=== PATIENT | male | born 1990 | race Caucasian/White ===

== ENCOUNTER 2021-12-21 21:27 | Emergency (ER) | payer OTHER, SELFPAY ==
[2021-12-21 22:46] VITALS: BP 146/99; PULSE 53; RESP 18; TEMP 36.9; O2SAT 100; BMI 34.1
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
[2021-12-21] MEDS: Fluorescein Sodium STRIP 1 STRIP EYE-RIGHT (23:23)
[2021-12-21] MEDS: Tetracaine HCl/PF 0.5% Oph Sol 4 ML DROPS 1 DROP EYE-RIGHT (23:23)
== END 2021-12-21 23:47 | disposition home or self-care (01) ==
LOC: HO.ED 23:42
PROVIDERS: Emergency Provider Emergency Medicine
DX: S05.01XA Injury of conjunctiva and corneal abrasion without foreign body, right eye, initial encounter (principal); X58.XXXA Exposure to other specified factors, initial encounter; Y93.9 Activity, unspecified; Y92.89 Other specified places as the place of occurrence of the external cause; Y99.9 Unspecified external cause status
CPT/HCPCS: 99283; 99284